=== PATIENT | male | born 1980 | race Caucasian/White ===

== ENCOUNTER 2016-11-18 17:17 | Emergency (ER) | payer OTHER ==
[~2016-11-18] VITALS: Ht 182.8 cm; Wt 131.5 kg
[~2016-11-18 17:17] MED LIST: CLINDAMYCIN HC300 MG PO; DAYPRO600 M1 PO; NORCO 5-325 TA1 EACH PO; ROBAXIN750 MG PO; ULTRAM50 MG PO; VICODIN 500 MG-1 TAB PO; ZANTAC 150150 MG PO; ZOFRAN4 MG PO
[2016-11-18] MEDS ORDERED: NAPROSYN500 MG PO (17:30)
[2016-11-18] MEDS ORDERED: 'PARAFON FORTE500 M1 PO (17:30)
== END 2016-11-18 18:30 | disposition home or self-care (01) ==
LOC: ED 17:17
DX: M54.42 Lumbago with sciatica, left side (principal); R03.0 Elevated blood-pressure reading, without diagnosis of hypertension; Z88.2 Allergy status to sulfonamides

== ENCOUNTER 2017-03-06 18:01 | Emergency (ER) | payer OTHER ==
[~2017-03-06] VITALS: Ht 182.8 cm; Wt 133.8 kg
[~2017-03-06 18:01] MED LIST changes: +'PARAFON FORTE500 M1 PO; +NAPROSYN500 MG PO
[2017-03-06] MEDS ORDERED: CLINDAMYCIN HC300 MG PO (18:15)
== END 2017-03-06 18:19 | disposition home or self-care (01) ==
LOC: ED 18:01
DX: L02.411 Cutaneous abscess of right axilla (principal); Z88.2 Allergy status to sulfonamides

== ENCOUNTER → 2018-12-01 | Outpatient (CLI) | payer OTHER ==
[~2018-12-01] MED LIST changes: +CYCLOBENZAPRINE5 M3 PO; +PREDNISONE10 MG PO
== END | disposition home or self-care (01) ==
LOC: LAB 09:40
DX: M10.071 Idiopathic gout, right ankle and foot (principal); M10.9 Gout, unspecified

== ENCOUNTER → 2019-10-27 | Outpatient (CLI) | payer BC | END | disposition home or self-care (01) | LOC: COVID19 11:08 | DX: Z20.828 Contact with and (suspected) exposure to other viral communicable diseases (principal); R05 Cough; R50.9 Fever, unspecified; R52 Pain, unspecified ==

== ENCOUNTER → 2020-04-21 | Outpatient (CLI) | payer BC | END | disposition home or self-care (01) | LOC: COVID19 11:32 | PROVIDERS: ATTEND Internal Medicine | DX: Z20.822 Contact with and (suspected) exposure to COVID-19 (principal) ==

== ENCOUNTER 2020-08-07 18:16 | Emergency (ER) | payer BC | END 2020-08-07 21:27 | disposition home or self-care (01) | LOC: ED 18:16 | DX: U07.1 COVID-19 (principal); Z88.2 Allergy status to sulfonamides; Z79.899 Other long term (current) drug therapy; Z79.2 Long term (current) use of antibiotics ==

== ENCOUNTER 2020-08-08 13:36 | Emergency (ER) | payer BC ==
[2020-08-08 14:43] LABS: BASO % 0.2 % (0.0-1.0); HEMATOCRIT 41.8 % (42.0-52.0); LYMPH # 0.7 10*3/uL (1.3-4.4); LYMPH % 14.4 % (27.0-41.0); MEAN CELL VOLUME 87.3 fl (80.0-94.0); MEAN CORPUSCULAR HGB 28.6 pg (27.0-31.0); MEAN CORPUSCULAR HGB CONC 32.8 g/dl (33.0-37.0); MEAN PLATELET VOLUME 9.4 fl (9.6-12.3); MONO # 0.5 10*3/uL (0.1-1.0); MONO % 9.2 % (3.0-9.0); NEUT # 3.7 10*3/uL (2.3-7.9); PLATELET COUNT AUTOMATED 238 10*3/uL (130-400); RED BLOOD COUNT 4.79 10*6/uL (4.50-5.90); RED CELL DISTRI WIDTH 12.1 % (0-14.5); WHITE BLOOD COUNT 4.9 10*3/uL (4.8-10.8)
[2020-08-08 14:56] LABS: ALBUMIN 3.6 gm/dl (3.1-4.5); ALKALINE PHOSPHATASE 92 U/L (45-117); BUN 17 mg/dl (7-24); CHLORIDE 101 mmol/L (98-107); LIPASE 82 U/L (73-393); POTASSIUM 4.2 mmol/L (3.5-5.1); SGOT/AST 34 IU/L (3-35); SGPT/ALT 69 U/L (12-78); SODIUM 136 mmol/L (136-145); TOTAL PROTEIN 7.9 gm/dL (6.4-8.2)
[2020-08-12] MEDS ORDERED: DECADRON4 MG PO (16:44)
[2020-08-12] MEDS ORDERED: VENT7GM INH (16:44)
== END 2020-08-08 16:00 | disposition home or self-care (01) ==
LOC: ED 13:36
PROVIDERS: Physician Assistant
DX: U07.1 COVID-19 (principal); R11.2 Nausea with vomiting, unspecified; Z88.2 Allergy status to sulfonamides; Z79.899 Other long term (current) drug therapy; Z79.2 Long term (current) use of antibiotics